=== PATIENT | female | born 1975 | race Caucasian/White ===

== ENCOUNTER 2021-05-16 13:51 | Emergency (ER) | payer BC, SELFPAY ==
[2021-05-16 13:56] VITALS: BP 177/102; PULSE 104; RESP 20; TEMP 36.7; O2SAT 100
== END 2021-05-17 04:09 | disposition left against medical advice (07) ==
PROVIDERS: PCP Family Medicine
DX: Z53.21 Procedure and treatment not carried out due to patient leaving prior to being seen by health care provider (principal)
CPT/HCPCS: 99199

== ENCOUNTER → 2021-06-26 02:49 | Outpatient (CLI) | payer BC, SELFPAY ==
[2021-06-26 21:19] LABS: SARS-CoV-2 RNA PCR Negative
== END ==
PROVIDERS: PCP Family Medicine; Visit Provider Family Medicine
DX: J01.90 Acute sinusitis, unspecified (principal); Z20.822 Contact with and (suspected) exposure to COVID-19
CPT/HCPCS: C9803; U0003; U0005

== ENCOUNTER 2022-04-07 11:06 | Emergency (ER) | payer BC, SELFPAY ==
--- NOTE | ~2022-04-07 | CT_ITS ---
EXAMINATION: CT foot RT wo con DATE: 04/07/2022 12:47 INDICATION: Right foot injury and pain and swelling. TECHNIQUE: Computed tomography (CT) of the right foot was performed without intravenous contrast. Aut omated exposure control and iterative reconstruction technique were employed. The dose-length product was 421.99 mGy-cm. COMPARISON: Right foot radiographs 04/07/2022 FINDINGS: There is an intra-articular fracture of base of second proximal phalanx. There is a fractur e of head of second metatarsal. There is a fracture of medial aspect of navicular. The medial fractur e fragment is posteriorly and superiorly displaced along with medial cuneiform. There is an impaction fracture of medial cuneiform where it abuts the main lateral fracture fragment of navicular. There a re displaced fracture fragments between medial and intermediate cuneiforms. There is a fracture of me dial base of second metatarsal. There is a fracture of distal lateral aspect of medial cuneiform. 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 There is soft tissue swelling of the fo ot. IMPRESSION: 1. Fracture dislocation of medial naviculocuneiform joint. 2. Fractures of medial cuneiform and base of second metatarsal at the attachments of Lisfranc ligamen t. 3. Fractures of head of second metatarsal and base of second proximal phalanx. Reviewed, dictated and finalized at location [facility]. IMPRESSION: 1. Fracture dislocation of medial naviculocuneiform joint. 2. Fractures of medial cuneiform and base of second metatarsal at the attachmen ts of Lisfranc ligament. 3. Fractures of head of second metatarsal and base of second proximal phalanx.
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
[2022-04-07 11:15] VITALS: BP 150/100; PULSE 85; RESP 18; TEMP 37.1; O2SAT 97
[2022-04-07] MEDS: HYDROcodone/acetaminophen (*CRX) 5-325 MG TABLET 1 TAB PO (12:54)
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
[2022-04-07 14:35] VITALS: BP 128/74; PULSE 82; RESP 18; O2SAT 99
== END 2022-04-07 14:36 | disposition home or self-care (01) ==
PROVIDERS: Emergency Provider Emergency Medicine; PCP Family Medicine
DX: S92.251A Displaced fracture of navicular [scaphoid] of right foot, initial encounter for closed fracture (principal); S92.241A Displaced fracture of medial cuneiform of right foot, initial encounter for closed fracture; S92.321A Displaced fracture of second metatarsal bone, right foot, initial encounter for closed fracture; S92.511A Displaced fracture of proximal phalanx of right lesser toe(s), initial encounter for closed fracture; V43.52XA Car driver injured in collision with other type car in traffic accident, initial encounter; W22.11XA Striking against or struck by driver side automobile airbag, initial encounter
CPT/HCPCS: 29515; 73630; 73700; 99284; A9270

== ENCOUNTER 2023-03-12 08:10 | Emergency (ER) | payer BC, SELFPAY ==
--- NOTE | ~2023-03-12 | CT_ITS ---
CT of the Abdomen and Pelvis: Indication: Abdominal pain Technique: 2.5 mm axial scans were obtained through the abdomen and pelvis following intravenous adm inistration of 100 cc of Omnipaque 350. Dose reduction technique was used on this scan by utilizing a utomated exposure control and iterative reconstruction technique. The dose-length product (DLP) was 4 24.65 mGy-cm. Findings: Scans through the lung bases are unremarkable. The liver, spleen, pancreas, gallbladder, adrenals and left kidney are within normal limits. Probable focal area of right renal cortical scarring. No evidence of aortic aneurysm. No lymphadenopathy. No bowel obstruction or bowel wall thickening. There is no evidence to suggest acute appendicitis. Images through the pelvis were performed. Urinary bladder unremarkable. Small hypodense uterine mass present, possibly small fibroid. No other adnexal mass seen. No ascites. Impression: No acute abnormality seen. Probable very small uterine fibroid. Focal area of cortical scarring of the right kidney. Reviewed, dictated and finalized at [facility]. Impression: No acute abnormality seen. Probable very small uterine fibroid. Focal area of cortical scarring of the right kidney.
[2023-03-12 08:11] VITALS: BP 153/101; PULSE 92; RESP 16; TEMP 36.1; O2SAT 100
--- NOTE | 2023-03-12 08:18 | ED.ABDPAIN ---
HPI - Abdominal Pain General Chief Complaint: Abdominal Pain Stated Complaint: ABD PAIN, HX OF ULCERATIVE COLITIS Time Seen by Provider: 03/12/23 08:17 History of Present Illness HPI narrative: Patient is a 48-year-old female who presents ER with abdominal pain and diarrhea. Over the last months she has been having a flare of her ulcerative colitis. She has been having 7 stools a day. She has lost 14 pounds last 2 weeks. On 912 she was given prescription for Cipro and Flagyl. She has also been on 5 days of prednisone that she just finished. She continues to have loose stools. Occasional blood from the rectum. She feels nauseous and bloated all the time. She has pain in her lower and upper abdomen. She has subjective fevers and chills. Related Data Allergies Allergy/AdvReac Type Severity Reaction Status Date / Time No Known Allergies Allergy Unknown Verified 04/07/22 11:24 Review of Systems Review of Systems: All systems reviewed & are unremarkable except as noted in HPI and below Constitutional: Constitutional: Reports chills, Reports fatigue and Reports fever(s) ENT: Denies nasal congestion and Denies sore throat Cardiovascular: Cardiovascular: Reports no additional cardiovascular complaints Respiratory: Respiratory: Reports no additional respiratory complaints Gastrointestinal: Gastrointestinal: Reports abdominal pain, Reports diarrhea, Reports nausea and Reports vomiting Genitourinary: Genitourinary: Reports no additional female genitourinary complaints Musculoskeletal: Musculoskeletal: Reports no additional musculoskeletal complaints PMFSH Past Medical History Medical History (Updated 03/12/23 @ 09:56 by Alex Shaw MD) Anxiety Ulcerative colitis Surgical History Surgical History (Updated 03/12/23 @ 08:26 by Alex Shaw MD) H/O foot surgery Lis-Franc fracture H/O tubal ligation No significant past surgical history Exam Narrative: GENERAL: Well-appearing, well-nourished, and in no acute distress. HEAD: Normocephalic, atraumatic. ENT: Mucous membranes moist. NECK: Supple. CHEST: Clear to auscultation. No respiratory distress. HEART: Regular rate and rhythm. Normal peripheral pulses. ABDOMEN: Soft, tender palpation in the epigastrium and left upper quadrant but most tender in right lower quadrant with guarding, nondistended. EXTREMITIES: Normal range of motion. No edema. SKIN: Warm, dry, no rash. NEURO: Alert and oriented x3. PSYCH: Normal mood and affect. Course Course Emergency Course: Patient resting comfortably. Informed of results. No leukocytosis or anemia. Slightly decreased potassium level. Normal renal function. LFTs normal. CT without acute process. Patient appropriate for discharge home. Vital Signs Vital signs: Vital Signs Temperature 97.0 F L 03/12/23 08:11 Pulse Rate 92 03/12/23 08:11 Respiratory Rate 16 03/12/23 08:11 Blood Pressure 153/101 H 03/12/23 08:11 Pulse Oximetry 100 03/12/23 08:11 Oxygen Delivery Room Air 03/12/23 08:11 Temperature 97.0 F L 03/12/23 08:11 Pulse Rate 92 03/12/23 08:24 Respiratory Rate 18 03/12/23 08:24 Blood Pressure 158/107 H 03/12/23 08:24 Pulse Oximetry 100 03/12/23 08:24 Oxygen Delivery Room Air 03/12/23 08:11 MDM - Abdominal Pain Lab Data 03/12/23 08:27 03/12/23 08:27 Labs: Lab Results 03/12/23 Range/Units 08:27 WBC 6.0 (4.5-10.0) K/mm3 RBC 4.46 (4.2-5.4) M/mm3 Hgb 13.8 (12.0-15.0) g/dL Hct 41.6 (37.0-47.0) % MCV 93.3 (80-100) fl MCH 30.9 (26-34) pg MCHC 33.2 (32-36) g/dl RDW 12.2 (11.5-14.5) % Plt Count 219 (150-375) k/mm3 MPV 11.6 H (7.4-10.4) fl Immature Gran % (Auto) 0.2 (0-0.5) % Neut % (Auto) 69.9 (45.5-73.1) % Lymph % (Auto) 19.9 (18.3-44.2) % [place] % (Auto) 6.8 (2.6-8.5) % Eos % (Auto) 2.5 (0-4.4) % Baso % (Auto) 0.7 (0.2-1.2) % Lymph # (Auto) 1.20 (0.9-3.2)
[2023-03-12 08:24] VITALS: BP 158/107; PULSE 92; RESP 18; O2SAT 100
[2023-03-12 08:25] VITALS: BP 158/107; PULSE 93; RESP 11; O2SAT 100
[2023-03-12 08:30] VITALS: BP 146/91; PULSE 83; RESP 27; O2SAT 100
[2023-03-12] MEDS: MORPHINE SULFATE (*CRX) 4 MG/ML INJ IV PUSH (08:34)
[2023-03-12] MEDS: SODIUM CHLORIDE 0.9% IV 1,000 ML 999 ML IV CONT (08:34)
[2023-03-12] MEDS: ONDANSETRON INJ 4 MG/2 ML VIAL IV PUSH (08:34)
[2023-03-12 08:41] LABS: Basophils Percent Auto 0.7 % (0.2-1.2); Eosinophils Absolute Auto 0.2 K/mm3 (0-0.3); Eosinophils Percent Auto 2.5 % (0-4.4); Hematocrit 41.6 % (37.0-47.0); Hemoglobin 13.8 g/dL (12.0-15.0); Immature Granulocyte Absolute 0.01 K/mm3 (0.00-0.031); Immature Granulocyte Percent A 0.2 % (0-0.5); Lymphocytes Percent Auto 19.9 % (18.3-44.2); Mean Corpuscular HGB Conc 33.2 g/dl (32-36); Mean Corpuscular Hemoglobin 30.9 pg (26-34); Mean Corpuscular Volume 93.3 fl (80-100); Mean Platelet Volume 11.6 fl (7.4-10.4); Monocytes Absolute Auto 0.4 K/mm3 (0.1-0.6); Monocytes Percent Auto 6.8 % (2.6-8.5); Neutrophils Absolute Auto 4.2 K/mm3 (1.3-6.7); Neutrophils Percent Auto 69.9 % (45.5-73.1); Platelet Count Result 219 k/mm3 (150-375); Red Blood Count 4.46 M/mm3 (4.2-5.4); Red Cell Distribution Width 12.2 % (11.5-14.5)
[2023-03-12 08:45] VITALS: BP 142/104; PULSE 87; RESP 21; O2SAT 100
[2023-03-12 08:47] LABS: Alanine Aminotransferase 20 U/L (6-35); Albumin Level 4.8 g/dL (3.5-5.1); Alkaline Phosphatase 65 U/L (38-126); Anion Gap 11 mmol/L (8-16); Aspartate Amino Transferase 23 U/L (14-36); Bilirubin,Total 0.9 mg/dL (0.2-1.3); Blood Urea Nitrogen 10 mg/dL (7-17); Calcium 9.4 mg/dL (8.4-10.2); Carbon Dioxide 25 mmol/L (22-30); Chloride 102 mmol/L (98-107); Estimated CRCL calculation 88 ml/min; Estimated Glomerular Filt Rate > 60; Glucose 96 mg/dL (65-110); Lactic Acid Reflex 1.1 mmol/L (0.7-2.0); Lipase 97 U/L (23-300); Potassium 3.2 mmol/L (3.4-5.0); Sodium 138 mmol/L (137-145)
[2023-03-12 10:13] VITALS: BP 144/94; PULSE 84; RESP 17; TEMP 36.8; O2SAT 100
--- NOTE | 2023-03-12 10:15 | PC.NURSE ---
Pt visibly upset. Pt stated she was returning to the doctors office and this was a joke because doctor stated she was dehydrated. Pt received 1L of fluids.
== END 2023-03-12 10:20 | disposition home or self-care (01) ==
PROVIDERS: Emergency Provider Emergency Medicine; PCP Family Medicine
DX: K51.90 Ulcerative colitis, unspecified, without complications (principal); K52.9 Noninfective gastroenteritis and colitis, unspecified
CPT/HCPCS: 36415; 74177; 80053; 81025; 83605; 83690; 85025; 96361; 96374; 96375; 99284; J2270; J2405; J7030; Q9967